=== PATIENT | female | born 1980 | race Hispanic/Latino ===

== ENCOUNTER 2022-10-31 16:52 | Emergency (ER) | payer SELFPAY ==
--- NOTE | ~2022-10-31 | XR_ITS ---
EXAMINATION: XR hip RT 2V w AP pelvis INDICATION: Right hip pain TECHNIQUE: AP view the pelvis and two views of the right hip are obtained. COMPARISON: None available FINDINGS: No fracture, dislocation, or subluxation. The bones and joint spaces are normal. Tubal liga tion clips are noted. IMPRESSION: 1. No acute osseous abnormality. Reviewed, dictated and finalized at location F. ICENOW ADMINISTRATOR DEVELOPER
[2022-10-31 17:08] VITALS: BP 114/76; PULSE 75; RESP 14; TEMP 36.6; O2SAT 99
--- NOTE | 2022-10-31 17:26 | ED.LOWEXIN ---
HPI - Extremity Injury (Lower) General Chief Complaint: Extremity Injury, Lower Stated Complaint: Right Hip Pain Time Seen by Provider: 10/31/22 17:20 Source: patient Mode of arrival: ambulatory Limitations: no limitations History of Present Illness HPI Narrative: Lizz is a 42-year-old female patient presenting to the clinic today with complaints of right-sided hip pain. She reports that her hip has been bothered for approximately 4-5 months however today she started to have burning in her hip joint. She denies any injury, urinary symptoms, back pain, vaginal discharge, pelvic pain, or abdominal pain Related Data Allergies Allergy/AdvReac Type Severity Reaction Status Date / Time No Known Allergies Allergy Mild Verified 10/31/22 17:04 Review of Systems Review of Systems: Pertinent positives per HPI. Patient denies any fever, chills, rash, headache, visual changes, dizziness, cough, runny nose, sore throat, shortness of breath, chest pain, palpitations, nausea, vomiting, diarrhea, constipation, abdominal pain, or any urinary issues. PMFSH Comments At the time of my signature, I reviewed and agree with the nursing past medical, surgical, social, and family history. There is no relevant family history pertinent to the patient complaint. Exam Narrative: General: Well-developed, well nourished, in no apparent distress Head: Normocephalic, atraumatic. Cardio: Regular rate and rhythm, s1 and s2 normal, no murmur appreciated. Resp: Clear to auscultation bilaterally, no rhonchi, rales, wheezing or rubs. Abdomen: Soft, pliable, nondistended, bowel sounds present in all 4 quadrants, nontender to palpation, no organomegaly, no CVAT tenderness Musculoskeletal: No deformity, non-tender to palpation, grossly normal range of motion, muscle strength strong and equal, peripheral pulse strong, no edema, no cyanosis, normal gait and station Course Course Emergency Course: Portions of this record may have been created with voice recognition software. Level of Care: Express Care Visit Vital Signs Vital signs: Vital Signs Temperature 36.6 C 10/31/22 17:08 Pulse Rate 75 10/31/22 17:08 Respiratory Rate 14 10/31/22 17:08 Blood Pressure 114/76 10/31/22 17:08 Pulse Oximetry 99 10/31/22 17:08 Oxygen Delivery Room Air 10/31/22 17:08 Temperature 36.6 C 10/31/22 17:08 Pulse Rate 75 10/31/22 17:08 Respiratory Rate 14 10/31/22 17:08 Blood Pressure 114/76 10/31/22 17:08 Pulse Oximetry 99 10/31/22 17:08 Oxygen Delivery Room Air 10/31/22 17:08 Vital signs reviewed MDM - Extremity Injury (Lower) MDM Narrative Medical decision making narrative: At the time of visit patient is resting comfortably on the exam table. Imaging Data Radiologist's impression: [facility] [address] [place] [address] XRay Report Signed Patient: Lizz Plasencia : 1980 MR#: [id number] Age/Sex: 42 / F Acct:[id number] Loc: EXPCOLL? ? ADM Date: 10/31/22Attending Dr: Ordering Physician: Cole Muhammad APRN Date of Service: 10/31/22 Procedure(s): XR hip RT 2V w AP pelvis Accession Number(s): [id number] cc: Reji, Russell MECHANIC INSULATOR; Cole Muhammad APRN~ EXAMINATION: XR hip RT 2V w AP pelvis INDICATION: Right hip pain TECHNIQUE: AP view the pelvis and two views of the right hip are obtained. COMPARISON: None available FINDINGS: No fracture, dislocation, or subluxation. The bones and joint spaces are normal. Tubal ligation clips are noted. IMPRESSION: 1. No acute osseous abnormality. Reviewed, dictated and finalized at location F. OLL AUDITOR Dictated By:? Ciro Teran MD? 10/31/221742 Signed By:? ? <Electronically signed by? Ciro Teran MD in OV> 10/31/22 759 Discharge Plan Dischar
== END 2022-10-31 18:00 | disposition home or self-care (01) ==
PROVIDERS: Emergency Provider Nurse Practitioner Family; PCP Registered Nurse
DX: M25.551 Pain in right hip (principal)
CPT/HCPCS: 73502; 99213; G0463

== ENCOUNTER 2024-09-22 10:24 | Emergency (ER) | payer SELFPAY ==
--- NOTE | 2024-09-22 10:27 | ED.URI ---
HPI - URI/Sore Throat General Chief Complaint: Upper Respiratory Infection Stated Complaint: cough,back pain Time Seen by Provider: 09/22/24 10:45 Source: patient, RN notes reviewed and old records reviewed Mode of arrival: ambulatory Limitations: no limitations History of Present Illness HPI Narrative: 43-year-old female presents to the [facility] with complaints of a cough and back pain. Symptoms started 2 weeks ago. Has been taking ibuprofen and NyQuil. Patient reports increasing coughing fits with upper back pain and right lower rib pain. Denies fevers. Denies chest pain. Denies nausea vomiting. Also reports URI symptoms Onset (ago): week(s) (2) Treatments prior to arrival: ibuprofen and cold medicine Related Data Allergies Allergy/AdvReac Type Severity Reaction Status Date / Time No Known Allergies Allergy Mild Verified 09/22/24 10:35 Review of Systems Review of Systems: All systems reviewed & are unremarkable except as noted in HPI and below Constitutional: Constitutional: Reports no additional constitutional complaints ENT: Reports as per HPI Cardiovascular: Cardiovascular: Reports no additional cardiovascular complaints, Denies chest pain and Denies dyspnea Respiratory: Respiratory: Reports as per HPI, Denies chest congestion, Reports cough and Denies dyspnea Musculoskeletal: Musculoskeletal: Reports no additional musculoskeletal complaints Integumentary/Breasts: Skin/Breast: Reports system reviewed and no additional complaints, except as docu PMFSH Comments At the time of my signature, I reviewed and agree with the nursing past medical, surgical, social, and family history. There is no relevant family history pertinent to the patient complaint. Exam Const: General: cooperative, healthy appearing, comfortable, no acute distress, well developed, alert and well nourished Nutritional Appearance: well nourished Orientation/consciousness: patient oriented x3 Limitations: no limitations HENMT: Head: normal to inspection Ears: hearing grossly normal bilaterally, TM's normal bilaterally, EAC's normal, mastoids normal and no periauricular adenopathy Mouth: Yes Normal oral and palatal mucosa present, Yes lip normal, Yes tongue normal and Yes moist mucous membranes Throat: posterior oropharynx normal, uvula midline and no uvular edema Eyes: General: appearance normal, both eyes and all related structures Alignment and Position: alignment normal Neck: Neck: normal visual inspection, full ROM, no lymphadenopathy and no meningeal signs Chest: Chest palpation & inspection: normal inspection of the chest Resp: Effort & Inspection: normal respiratory effort and able to speak in complete sentences Auscultation: clear to auscultation bilaterally, no crackles, no rales, no rhonchi and no wheezes Cardio: Rate: regular rate Skin: General skin exam: normal color and no rashes or lesions noted Neuro: General: patient oriented x3, gait normal, moves all extremities and no meningeal signs Cognition (Neuro): normal cognition Speech: normal speech Gait exam (Neuro): Normal gait present Extrem: General: normal to inspection, full ROM, capillary refill normal and normal gait Psych: Appearance: grossly normal and well kempt Mental Status: mental status grossly normal Speech and movement: Normal speech and movement present and Clear speech present Affect: normal affect Attitude: cooperative Course Course Level of Care: Express Care Visit Vital Signs Vital signs: Vital Signs Temperature 97.5 F L 09/22/24 10:38 Pulse Rate 101 H 09/22/24 10:38 Respiratory Rate 18 09/22/24 10:38 Blood Pressure 139/68 09/22/24 10:38 Pulse Oximetry 100 09/22/24 10:38 Temperature 97.5 F L 09/22/24 10:38 Pulse Rate 101 H 09/22/24 10:38 Respiratory Rate 18 09/22/24 10:38 Blood Pressure 139/68 09/22/24 10:38 Pulse Oximetry 100 09/22/24 10:38 Reviewed MDM - URI/Sore Throat MDM Narrative Medical decision making narrative: Patient sitting comfortably in exam room. Nontoxic, vitals stable. Patient in no acute distress. Patient presents with 2 week history of cough, URI symptoms. Patient with no acute findings. Exam consistent with bronchitis with signs and symptoms. Patient appropriate for outpatient treatment and follow-up Discharge instructions reviewed with patient, as well as provided in writing per nursing staff. The instructions also include specific and strict return/GO TO THE ER as well as f/u information. All questions have been answered, and the patient deny any further questions with discharge and discharge plan. Some parts of this dictation were generated by voice recognition software and may contain typographical and/or grammatical inaccuracies. Differential Diagnosis Differential diagnosis: Likely upper respiratory infection, otitis media, sinusitis, viral infection, bronchitis, influenza and pharyngitis Critical Care Time Critical Care Time Critical Care Time: No Discharge Plan Discharge Clinical Impression: Bronchitis Patient Disposition: Home, Self-Care Condition: Stable Instructions: Antibiotic Form, Acute Bronchitis (ED) Additional Instructions: Es muy importante tratar taylor s?ntomas. Samantha donna agua, Gatorade, Pedialyte, paletas heladas o gelatina. -Alterne Tylenol y Motrin seg?n las instrucciones del paquete para la fiebre o el dolor. Puedes alternar cada 4 horas. -Los medicamentos antihistam?nicos sivan Zyrtec/Claritin/Jenna jimmie el d?a pueden ayudar a mejorar los s?ntomas. -Hacer irrigaciones nasales diarias puede ayudar a aliviar la presi?n de los senos nasales. Cosas sivan silvestre olla Neti -Use Flonase dos veces al d?a jimmie 5 d?as y luego diariamente para ayudar a reducir la inflamaci?n y secar los senos nasales. -Tambi?n puedes utilizar Mucinex. Aseg?rese de beber donna agua con hortensia medicamento, al menos 8 onzas con cada dosis y es importante beber de 8 a 10 vasos de agua por d?a. El agua es un descongestionante natural. -Coma y samantha cosas que new f?ciles de tragar, sivan t?, sopa o paletas heladas. -Enjuagues bucales sivan: Gargarismos con agua salada y/o puede utilizar anest?sico t?kathryn (p. ej. spray cloras?ptico) o pastillas para aliviar la sequedad o el dolor de garganta). -Lavarse las vito con frecuencia o usar desinfectante para vito es silvestre de las mejores formas de prevenir la propagaci?n de infecciones. -Usar un vaporizador o humidificador por la noche tambi?n ayudar? a diluir las secreciones y a toser con flema. -Seguimiento con el proveedor de atenci?n primaria en 7 a 10 d?as si la condici?n no mejora - Si los s?ntomas son nuevos o empeoran, vaya directamente a la saul de emergencias m?s cercana. It is very important to treat your symptoms. Drink plenty of water, Gatorade, Pedialyte, ice pops or Jell-O. -Alternate Tylenol and Motrin per package directions for fever or pain. You can alternate every 4 hours -Antihistamine medication such as Zyrtec/Claritin/Jenna during the day can help improve symptoms. -doing daily nasal irrigations can help relieve pressure your sinuses. Things like a Neti pot -Use Flonase twice a day for 5 days then daily to help reduce the inflammation and dry up your sinuses. -You can also use Mucinex. Be sure to drink plenty of water with this medication at least 8 ounces with every dose and it is important to drink 8 to 10 glasses of water per day. Water is a natural decongestant -Eat and drink things that are easy to swallow, like tea or soup, or popsicles. -Oral rinses such as: Salt water gargles and/or may use topical anesthetic (eg. Chloraseptic spray) or lozenges to relieve dryness or throat pain). -Frequent hand washing or hand desk clerks supervisor is one of the best ways to prevent spread of infection. -Using a vaporizer or humidifier at night will also help thin secretions and help with coughing up phlegm. -Follow up with primary care provider in 7-10 days if condition is not improving - For new or worsening symptoms go directly to the nearest ER Patient Language: Lithuanian Prescriptions: New doxycycline monohydrate 100 mg tablet 100 mg PO BID Qty: 14 0RF albuterol sulfate 90 mcg/actuation HFA aerosol inhaler 2 puff inhalation QID PRN (Reason: shortness of breath or wheezing) Qty: 6.7 0RF (DME) Aerochamber MV Spacer See Rx Instructions .Route Qty: 1 0RF Rx Instructions: As directed prednisone 20 mg tablet See Rx Instructions .Route .COMPLEX Qty: 9 0RF Rx Instructions: Take 40 mg daily for 3 days, 20 mg daily for 3 days Follow-up/Referrals: Reji,CHU Wells [Primary Care Provider] - 2 Weeks ([facility] care follow up) Stand Alone Forms: Work/School Release IP Time of Disposition: 10:56
[2024-09-22 10:38] VITALS: BP 139/68; PULSE 101; RESP 18; TEMP 36.4; O2SAT 100
== END 2024-09-22 11:00 | disposition home or self-care (01) ==
PROVIDERS: Emergency Provider Nurse Practitioner; PCP Registered Nurse
DX: J40 Bronchitis, not specified as acute or chronic (principal)
CPT/HCPCS: 99203; G0463

== ENCOUNTER 2024-12-09 11:49 | Emergency (ER) | payer SELFPAY ==
[2024-12-09 12:00] VITALS: BP 126/64; PULSE 76; RESP 20; TEMP 36.1; O2SAT 100
--- NOTE | 2024-12-09 12:40 | ED.EAR ---
HPI - Ear Problem General Chief complaint: Ear Stated complaint: right ear pain Time Seen by Provider: 12/09/24 12:49 Source: patient and RN notes reviewed Mode of arrival: ambulatory Limitations: no limitations History of Present Illness HPI Narrative: 44-year-old female presents with concern for right ear pain. She reports chronic ear pain. Reports since September she has had nasal congestion, drainage, cough. Reports she has been taking Jenna D without relief. She denies fever drainage from the ear. MD Complaint: ear pain Related Data Home Medications ?Medication ?Instructions ?Recorded ?Confirmed ?Last Taken ?Type fexofenadine 180 mg tablet 180 mg PO DAILY 12/09/24 12/09/24 Unknown History (Jenna Allergy) Allergies Allergy/AdvReac Type Severity Reaction Status Date / Time No Known Allergies Allergy Mild Verified 12/09/24 11:57 Review of Systems Review of Systems: CONSTITUTIONAL: Denies malaise, chills, sweats, or fever. EYES: Denies visual changes, redness, or discharge. ENT: Reports rhinorrhea, congestion, sinus pain. Reports right ear pain CARDIOVASCULAR: Denies chest pain, palpitations, or edema. RESPIRATORY: Reports cough. Denies dyspnea. GASTROINTESTINAL: Denies abdominal pain, nausea, vomiting, diarrhea SKIN: Denies rash or itching. MUSCULOSKELETAL: Denies myalgia. NEUROLOGIC: Denies headache. All systems reviewed & are unremarkable except as noted in HPI and below PMFSH Comments At time of signature, agree with nursing past medical, surgical, social and family history. There is no relevant family history pertinent to the presenting complaint Exam Narrative: GENERAL: Well-appearing, well-nourished, and in no acute distress. HEAD: Normocephalic EYES: PERRLA, conjunctivae clear ENT: Nares clear. Mucous membranes moist. TM pearly sherman with dull light reflex bilaterally; no tragal tenderness. Oropharynx not erythematous without lesions. Tonsils not enlarged and without exudate, no drooling, no hoarseness, no trismus, uvula midline. NECK: Supple. No lymphadenopathy CHEST: Clear to auscultation, breath sounds equal. No wheezing, rhonchi, rales, or stridor. No respiratory distress, speaks in full sentences. HEART: Regular rate and rhythm. No murmur heard. SKIN: Warm, dry, no rash. NEURO: Alert and oriented x3. PSYCH: Normal mood and affect Course Course Emergency Course: Patient is aware of diagnosis, understands and agrees to treatment plan. Anticipatory guidance given. Patient agrees to follow-up as directed and is aware of reasons to seek care at the emergency department. Portions of this record may have been created with voice recognition software Level of Care: [facility] Visit Vital Signs Vital signs: Vital Signs Temperature 97.0 F L 12/09/24 12:00 Pulse Rate 76 12/09/24 12:00 Respiratory Rate 20 12/09/24 12:00 Blood Pressure 126/64 12/09/24 12:00 Pulse Oximetry 100 12/09/24 12:00 Oxygen Delivery Room Air 12/09/24 12:00 Temperature 97.0 F L 12/09/24 12:00 Pulse Rate 76 12/09/24 12:00 Respiratory Rate 20 12/09/24 12:00 Blood Pressure 126/64 12/09/24 12:00 Pulse Oximetry 100 12/09/24 12:00 Oxygen Delivery Room Air 12/09/24 12:00 Reviewed. Medical Decision Making MDM Narrative Medical decision making narrative: I evaluated this in the [facility]. History is obtained from patient who is an independent historian and physical exam was performed.? Available medical records were reviewed. ? Exam findings and relevant testing show no acute concerns or changes; patient is non-toxic appearing and is in no distress. Differential diagnosis considered: Herrera virus, strep pharyngitis, allergic rhinitis, upper respiratory tract infection, sinusitis, rhinosinusitis, nasopharyngitis. viral pharyngitis, otitis media, otitis externa, otitis effusion, cerumen impaction, foreign body. Exam findings show no acute concerns or changes; patient is non-toxic appearing and is in no distress. Patient is appropriate for outpatient treatment and follow-up. ? Differential diagnosis and treatment plan were discussed with the patient. Patient agrees with discussion and after shared medical decision making agrees with plan of care. All questions were answered to the patient's satisfaction. Patient is appropriate for outpatient treatment and follow-up. Vital Signs Vital Signs: Vital Signs Temperature 97.0 F L 12/09/24 12:00 Pulse Rate 76 12/09/24 12:00 Respiratory Rate 20 12/09/24 12:00 Blood Pressure 126/64 12/09/24 12:00 Pulse Oximetry 100 12/09/24 12:00 Oxygen Delivery Room Air 12/09/24 12:00 Temperature 97.0 F L 12/09/24 12:00 Pulse Rate 76 12/09/24 12:00 Respiratory Rate 20 12/09/24 12:00 Blood Pressure 126/64 12/09/24 12:00 Pulse Oximetry 100 12/09/24 12:00 Oxygen Delivery Room Air 12/09/24 12:00 Critical Care Time Critical Care Time Critical Care Time: No Discharge Plan Discharge Clinical Impression: Sinobronchitis Patient Disposition: Home Condition: Stable Instructions: Antibiotic Form, Sinusitis (ED), Acute Bronchitis (ED) Additional Instructions: Take medication as prescribed Recommend antihistamine such as Benadryl at night time and Jenna during the day Also, recommend symptomatic treatment includes: rest, fluids, and increase humidity of the air at home. Recommend Acetaminophen as directed on the bottle to reduce fever, pain, headache. Avoid smoking/second-hand smoke. Please schedule a follow-up visit with your personal physician for further evaluation and treatment within 3-5days. =If your symptoms persist, change or worsen significantly before you can contact your personal physician then please, without delay, go to the emergency department for further evaluation. Sidney la medicaci?n seg?n lo prescrito. Recomiende antihistam?nicos sivan Benadryl por la noche y Jenna jimmie el d?a. Adem?s, recomiende un tratamiento sintom?zakiya que incluya reposo, l?quidos y aumentar la humedad del aire en casa. Recomiende acetaminof?n seg?n las indicaciones del envase para reducir la fiebre, el dolor y el dolor de marcelo. Evite fumar o ser fumador pasivo. Programe silvestre visita de seguimiento con ho m?dico de cabecera para silvestre evaluaci?n adicional y tratamiento dentro de 3 a 5 d?as. Si taylor s?ntomas persisten, cambian o empeoran significativamente antes de poder contactar a ho m?dico de cabecera, acuda de inmediato a urgencias para silvestre evaluaci?n adicional. Patient Language: Khmer Prescriptions: New dextromethorphan-guaifenesin [Mucinex DM] 60-1,200 mg tablet extended release 12 hr 1 tablet PO Q12H Qty: 12 0RF methylprednisolone [Medrol (Guru)] 4 mg tablets,dose pack See Rx Instructions .ROUTE .COMPLEX Qty: 21 0RF Rx Instructions: orally per package directions amoxicillin-pot clavulanate 875-125 mg tablet 1 tablet PO Q12H 10 Days Qty: 20 0RF No Action fexofenadine [Jenna Allergy] 180 mg tablet 180 mg PO DAILY Follow-up/Referrals: Reji,CHU Wells [Primary Care Provider] - Time of Disposition: 12:56
== END 2024-12-09 13:03 | disposition home or self-care (01) ==
PROVIDERS: Emergency Provider Nurse Practitioner; PCP Registered Nurse
DX: J32.9 Chronic sinusitis, unspecified (principal); J40 Bronchitis, not specified as acute or chronic
CPT/HCPCS: 99213; G0463